=== PATIENT | female | born 1955 | race Caucasian/White ===

== ENCOUNTER → 2017-04-18 | Outpatient (CLI) | payer BC ==
[~2017-04-18] MED LIST: HYDR25TA6 PO; LISI40TA PO; MELO-190 PO
== END | disposition home or self-care (01) ==
LOC: CFH 07:29
PROVIDERS: ATTEND Family Medicine
DX: Z12.31 Encounter for screening mammogram for malignant neoplasm of breast (principal)
CPT/HCPCS: 77063; G0202

== ENCOUNTER → 2020-11-12 | Outpatient (CLI) | payer OTHER ==
[~2020-11-12] MED LIST changes: -LISI40TA PO; +LISI40TA9 PO; -MELO-190 PO; +MELO7.5T31 PO
== END | disposition home or self-care (01) ==
LOC: CFH 13:10
PROVIDERS: ATTEND Family Medicine
DX: Z12.31 Encounter for screening mammogram for malignant neoplasm of breast (principal)
CPT/HCPCS: 77063; 77067

== ENCOUNTER → 2021-02-03 | Outpatient (CLI) | payer OTHER ==
[~2021-02-03] MED LIST changes: +AMLO-150 PO
[2021-02-03 09:49] LABS: ALANINE AMINOTRANSFERASE 31 U/L (12-78); ALBUMIN 3.8 g/dL (3.4-5.0); ANION GAP 6 mmol/L (5-15); CALCIUM 9.6 mg/dL (8.5-10.1); CHLORIDE 109 mmol/L (98-107); CREATININE 0.77 mg/dL (0.55-1.02)
[2021-02-03 09:51] LABS: ALKALINE PHOSPHATASE 68 U/L (45-117); BILIRUBIN,TOTAL 0.4 mg/dL (0.2-1.0); TOTAL PROTEIN 7.7 g/dL (6.4-8.2)
== END | disposition home or self-care (01) ==
LOC: STAR 08:30
PROVIDERS: ATTEND Orthopaedic Surgery
DX: Z01.818 Encounter for other preprocedural examination (principal); M75.121 Complete rotator cuff tear or rupture of right shoulder, not specified as traumatic; M25.511 Pain in right shoulder
CPT/HCPCS: 36415; 80053; 93005

== ENCOUNTER 2021-02-17 09:20 | Day surgery (SDC) | payer OTHER ==
[~2021-02-17] VITALS: Ht 167.6 cm; Wt 106.4 kg
[~2021-02-17 09:20] MED LIST changes: +BUPIVACAINE/PF 0.5% ONE; +EPINEPHRINE 1 MG/ML, 1ML ONE; +LIDOCAINE/PF 1%-EPI 1:200K, 30 ML ONE
[2021-02-17] MEDS ORDERED: CHLORHEXIDINE 15 ML UDC ONE (09:55)
[2021-02-17] MEDS ORDERED: LACTATED RINGERS 1,000 ML IV SCH (10:00)
[2021-02-17] MEDS ORDERED: CHLORHEXIDINE 15 ML UDC PO ONE (10:00)
[2021-02-17 10:11] VITALS: BP 149/89
[2021-02-17] MEDS ORDERED: MIDAZOLAM 1 MG/ML, 2ML ONE (10:47)
[2021-02-17] MEDS ORDERED: FENTANYL PF 250 MCG/5ML ONE (10:47)
[2021-02-17] MEDS ORDERED: LIDOCAINE-MPF 1%, 2ML ONE (10:56)
[2021-02-17] MEDS ORDERED: SUGAMMADEX 200 MG/2 ML IVPush ONE (12:23)
[2021-02-17] MEDS ORDERED: ROCURONIUM 10MG/ML,5ML ONE (12:27)
[2021-02-17] MEDS ORDERED: SUCCINYLCHOLINE 20 MG/ML, 10ML ONE (12:27)
[2021-02-17] MEDS ORDERED: ONDANSETRON 2MG/ML, 2ML ONE (12:27)
[2021-02-17] MEDS ORDERED: DEXAMETHASONE 4 MG/ML, 1ML ONE (12:27)
[2021-02-17] MEDS ORDERED: NEOSTIGMINE 1 MG/ML, 10ML ONE (12:27)
[2021-02-17] MEDS ORDERED: PROPOFOL 10 MG/ML, 20ML ONE (12:27)
[2021-02-17] MEDS ORDERED: CEFAZOLIN 1,000 MG ONE (12:27)
[2021-02-17] MEDS ORDERED: GLYCOPYRROLATE 0.2MG/1ML, 5ML ONE (12:27)
[2021-02-18] MEDS ORDERED: MELOXICAM 15 MG TABLET PO SCH (09:00)
[2021-02-18] MEDS ORDERED: HYDROCHLOROTHIAZIDE 25 MG TABLET PO SCH (09:00)
[2021-02-18] MEDS ORDERED: AMLODIPINE 5 MG TABLET PO SCH (09:00)
[2021-02-18] MEDS ORDERED: LISINOPRIL 40 MG TABLET PO SCH (09:00)
== END 2021-02-17 14:13 | disposition home or self-care (01) ==
LOC: OUT 09:20
PROVIDERS: ATTEND Orthopaedic Surgery
DX: Z47.2 Encounter for removal of internal fixation device (principal); S46.011A Strain of muscle(s) and tendon(s) of the rotator cuff of right shoulder, initial encounter; S43.431A Superior glenoid labrum lesion of right shoulder, initial encounter; M94.211 Chondromalacia, right shoulder; M65.811 Other synovitis and tenosynovitis, right shoulder; M19.90 Unspecified osteoarthritis, unspecified site; I10 Essential (primary) hypertension; E66.9 Obesity, unspecified; Z20.822 Contact with and (suspected) exposure to COVID-19; Z79.1 Long term (current) use of non-steroidal anti-inflammatories (NSAID); Z79.899 Other long term (current) drug therapy; Z88.0 Allergy status to penicillin; Z88.8 Allergy status to other drugs, medicaments and biological substances; W18.39XA Other fall on same level, initial encounter; Y93.89 Activity, other specified; Y92.89 Other specified places as the place of occurrence of the external cause; Y99.8 Other external cause status
CPT/HCPCS: 29823; 29826; 64415; J0171; J0330; J0690; J1100; J2250; J2405; J2704; J2710; J3010; J7120; U0003; U0005